=== PATIENT | female | born 1940 | race African-American/Black ===

== ENCOUNTER 2017-04-22 10:33 | Outpatient (CLI) | payer MEDICARE ==
--- NOTE | 2017-04-22 12:45 | ULT ---
ABDOMINAL ULTRASOUND: Date: 04-22-17 Provided Clinical History: Abdominal pain. FINDINGS: The visualized abdominal aorta, IVC, and pancreas appear normal. The liver demonstrates no evidence f or mass or intrahepatic biliary ductal dilatation. There is a nonspecific heterogeneous echotexture t o the hepatic parenchyma. Hepatic parenchyma appears echogenic as well as suggesting fatty infiltrati on. The gallbladder demonstrates shadowing echogenic foci compatible with gallstones. No evidence for wall thickening or pericholecystic fluid. The common duct is not dilated. The kidneys demonstrate no hydronephrosis or mass. Spleen is not enlarged and demonstrates no focal abnormality. IMPRESSION: 1. Cholelithiasis. 2. Findings suggesting fatty infiltration of the liver. POS: [facility]
== END 2017-04-22 10:34 | disposition home or self-care (01) ==
LOC: ULT 10:33
PROVIDERS: ATTEND Family Medicine
DX: R10.9 Unspecified abdominal pain (principal); E11.22 Type 2 diabetes mellitus with diabetic chronic kidney disease; N18.9 Chronic kidney disease, unspecified; K80.20 Calculus of gallbladder without cholecystitis without obstruction
CPT/HCPCS: 76700

== ENCOUNTER 2017-10-07 12:46 | Outpatient (CLI) | payer MEDICARE | END 2017-10-07 12:47 | disposition home or self-care (01) | LOC: BICMAMMO 12:46 | PROVIDERS: ATTEND Family Medicine | DX: Z12.31 Encounter for screening mammogram for malignant neoplasm of breast (principal); Z80.3 Family history of malignant neoplasm of breast | CPT/HCPCS: 77063; 77067 ==

== ENCOUNTER 2018-10-11 10:46 | Outpatient (CLI) | payer MEDICARE ==
--- NOTE | 2018-10-11 11:20 | MMO ---
Bilateral MAMMO Bilat Screen [facility]. CLINICAL HISTORY: Patient is 78 years old and is seen for screening. The patient has the following family history of breast cancer: daughter, malignant (generic). The patient has no personal history of cancer. VIEWS: The views performed were: bilateral craniocaudal with tomosynthesis and bilateral mediolateral oblique with tomosynthesis. FILMS COMPARED: The present examination has been compared to prior imaging studies performed at [facility] on 09/25/2014, 10/01/2015, 10/01/2016 and 10/07/2017. MAMMOGRAM FINDINGS: There are scattered fibroglandular densities. There are stable benign appearing calcifications seen in both breasts. There are also vascular calcifications. There are no suspicious masses, suspicious calcifications, or new areas of architectural distortion. IMPRESSION: THERE IS NO MAMMOGRAPHIC EVIDENCE OF MALIGNANCY. A ROUTINE FOLLOW-UP MAMMOGRAM IN 1 YEAR IS RECOMMENDED. THE RESULTS OF THIS EXAM WERE SENT TO THE PATIENT. ACR BI-RADS Category 2 - Benign finding MAMMOGRAPHY NOTE: 1. A negative mammogram report should not delay a biopsy if a dominant of clinically suspicious mass is present. 2. Approximately 10% to 15% of breast cancers are not detected by mammography. 3. Adenosis and dense breasts may obscure an underlying neoplasm.
== END 2018-10-11 10:47 | disposition home or self-care (01) ==
LOC: BICMAMMO 10:46
PROVIDERS: ATTEND Family Medicine
DX: Z12.31 Encounter for screening mammogram for malignant neoplasm of breast (principal); Z80.3 Family history of malignant neoplasm of breast
CPT/HCPCS: 77063; 77067